=== PATIENT | female | born 1965 | race Two or more races ===

== ENCOUNTER 2017-02-21 11:32 | Emergency (ER) | payer MEDICAID, SELFPAY ==
[~2017-02-21] VITALS: Ht 154.9 cm; Wt 90.0 kg
[2017-02-21 11:35] VITALS: BP 130/90
[2017-02-21] MEDS ORDERED: KETOROLAC 30 MG/1 ML ONE (12:21)
[2017-02-21] MEDS ORDERED: KETOROLAC 30 MG/1 ML IM ONE (12:30)
== END 2017-02-21 13:34 | disposition home or self-care (01) ==
LOC: ED 12:23
DX: M25.561 Pain in right knee (principal); G89.29 Other chronic pain
CPT/HCPCS: 73564; 96372; 99284; J1885

== ENCOUNTER 2017-07-18 12:41 | Emergency (ER) | payer OTHER ==
[~2017-07-18] VITALS: Ht 154.9 cm; Wt 89.0 kg
[2017-07-18 13:17] VITALS: BP 146/91
[2017-07-18] MEDS ORDERED: KETOROLAC 30 MG/1 ML ONE (13:20)
[2017-07-18] MEDS ORDERED: KETOROLAC 30 MG/1 ML IM ONE (13:30)
[2017-07-18 13:32] LABS: HEMATOCRIT 42.7 % (34.6-47.8); HEMOGLOBIN 14.7 g/dL (11.7-16.4)
[2017-07-18 13:43] LABS: BLOOD UREA NITROGEN 19 mg/dL (7-18)
[2017-07-18 13:48] LABS: IS PT STATUS REG ER OR PRE ER? YES
== END 2017-07-18 14:55 | disposition home or self-care (01) ==
LOC: ED 13:22
DX: R07.89 Other chest pain (principal); Z88.0 Allergy status to penicillin; E78.5 Hyperlipidemia, unspecified; F17.200 Nicotine dependence, unspecified, uncomplicated
CPT/HCPCS: 36415; 71010; 80048; 82040; 83880; 84484; 85025; 85379; 93005; 96372; 99285; J1885

== ENCOUNTER 2017-10-06 14:56 | Emergency (ER) | payer MEDICAID, OTHER ==
[~2017-10-06] VITALS: Ht 154.9 cm; Wt 92.4 kg
[2017-10-06 15:53] VITALS: BP 122/87
== END 2017-10-06 16:42 | disposition home or self-care (01) ==
LOC: ED 15:30
DX: H66.001 Acute suppurative otitis media without spontaneous rupture of ear drum, right ear (principal); Z59.0 Homelessness
CPT/HCPCS: 99283

== ENCOUNTER 2018-06-03 17:42 | Emergency (ER) | payer OTHER ==
[~2018-06-03] VITALS: Ht 154.9 cm; Wt 97.1 kg
[2018-06-03 17:48] VITALS: BP 115/77
[2018-06-03] MEDS ORDERED: PROPARACAINE OPHTH 0.5%, 15ML ONE (17:59)
[2018-06-03] MEDS ORDERED: FLUORESCEIN OPHTHALMIC 1 MG STRIP EACHEYE ONE (18:00)
[2018-06-03] MEDS ORDERED: PROPARACAINE OPHTH 0.5%, 15ML EACHEYE ONE (18:00)
== END 2018-06-03 19:44 | disposition home or self-care (01) ==
LOC: ED 19:38
DX: H00.11 Chalazion right upper eyelid (principal); E78.5 Hyperlipidemia, unspecified
CPT/HCPCS: 99283

== ENCOUNTER 2018-08-22 16:45 | Emergency (ER) | payer OTHER ==
[~2018-08-22] VITALS: Ht 154.9 cm; Wt 95.0 kg
[2018-08-22] MEDS ORDERED: ASPIRIN 81 MG TABLET CHEW ONE (16:56)
[2018-08-22] MEDS ORDERED: ASPIRIN 81 MG TABLET CHEW PO ONE (17:00)
[2018-08-22 17:12] LABS: BASOPHILS # (AUTO) 0.03 x10^3/uL (0-0.1); BASOPHILS % (AUTO) 0 % (0-1); EOSINOPHILS # (AUTO) 0.43 x10^3/uL (0-0.4); EOSINOPHILS % (AUTO) 5 % (1-7); LYMPHOCYTES # (AUTO) 2.95 x10^3/uL (1-3.4); LYMPHOCYTES % (AUTO) 31 % (22-44); MD NO; MEAN CORPUSCULAR HEMOGLOBIN 30.7 pg (27.0-34.8); MEAN CORPUSCULAR HGB CONC 34.4 g/dL (32.4-35.8); MEAN CORPUSCULAR VOLUME 89.2 fL (80-100); MEAN PLATELET VOLUME 8.7 fL (7.4-10.4); MONOCYTES # (AUTO) 0.72 x10^3/uL (0.2-0.8); MONOCYTES % (AUTO) 7 % (2-9); NEUTROPHILS # (AUTO) 5.54 x10^3/uL (1.8-6.8); NEUTROPHILS % (AUTO) 57 % (42-75); PLATELET COUNT 263 x10^3/uL (130-400); RED BLOOD COUNT 4.75 x10^6/uL (3.82-5.3)
[2018-08-22 17:20] LABS: ALANINE AMINOTRANSFERASE 40 U/L (12-78); ALBUMIN 3.6 g/dL (3.4-5.0); ANION GAP 8 mmol/L (5-15); CALCIUM 8.6 mg/dL (8.5-10.1); CHLORIDE 108 mmol/L (98-107); CREATININE 0.97 mg/dL (0.55-1.02)
[2018-08-22 17:25] LABS: ALKALINE PHOSPHATASE 90 U/L (45-117); BILIRUBIN,TOTAL 0.2 mg/dL (0.2-1.0); TOTAL PROTEIN 7.9 g/dL (6.4-8.2); TROPONIN I < 0.015 ng/mL (0.000-0.045)
[2018-08-22 18:05] LABS: RAPID INFLUENZA A Negative (Negative); RAPID INFLUENZA B Negative (Negative)
[2018-08-22] MEDS ORDERED: OXYcodone/APAP 5/325MG TABLET ONE (18:10)
[2018-08-22] MEDS ORDERED: OXYcodone/APAP 5/325MG TABLET PO ONE (18:30)
[2018-08-22 19:00] VITALS: BP 128/78
== END 2018-08-22 19:02 | disposition home or self-care (01) ==
LOC: ED 18:49
DX: R07.89 Other chest pain (principal); B34.9 Viral infection, unspecified; R11.2 Nausea with vomiting, unspecified; R19.7 Diarrhea, unspecified; E78.5 Hyperlipidemia, unspecified; F17.200 Nicotine dependence, unspecified, uncomplicated
CPT/HCPCS: 36415; 71045; 80053; 84484; 85025; 87400; 93005; 99284

== ENCOUNTER 2018-10-30 08:19 | Emergency (ER) | payer OTHER ==
[~2018-10-30] VITALS: Ht 154.9 cm; Wt 95.9 kg
[2018-10-30 08:33] VITALS: BP 168/87
--- NOTE | 2018-10-30 08:42 | NUR ---
CONTACT WITH PT, 53 YR OLD FEMALE HERE WITH C/O "MY THROAT HURTS, I'M COUGHING UP BLOOD, MY EARS, I GOT THAT COUGH. MY FAMILY WAS DX SOME WITH BRONCHITITS, SOME WITH LARYANGITIS. I THINK I'M GETTING BETTER AND THEN GET SICKER" HAS BEEN SINCE SATURDAY. BLOOD IS "LITTLE STREAKS OF BLOOD.
--- NOTE | 2018-10-30 08:45 | NUR ---
DR FIGUEROA AT BEDSIDE TO MONICA PT.
--- NOTE | 2018-10-30 09:45 | NUR ---
NO ACUTE DISTRESS NOTED. NO IV TO DC. REVIEWED DC INSTRUCTIONS WITH PT, UNDERSTANDING VERBALIZED. PT LEFT AMB, GAIT STEADY.
== END 2018-10-30 10:05 | disposition home or self-care (01) ==
LOC: ED 09:25
DX: J04.0 Acute laryngitis (principal); J00 Acute nasopharyngitis [common cold]; E78.5 Hyperlipidemia, unspecified; E06.9 Thyroiditis, unspecified
CPT/HCPCS: 71046; 99283

== ENCOUNTER 2021-05-26 20:36 | Emergency (ER) | payer OTHER ==
[~2021-05-26] VITALS: Ht 63.5 cm; Wt 101.4 kg
[2021-05-26 21:12] LABS: BASOPHILS % (AUTO) 1 % (0-1); EOSINOPHILS % (AUTO) 5 % (1-7); LYMPHOCYTES % (AUTO) 21 % (22-44); MEAN CORPUSCULAR HEMOGLOBIN 30.8 pg (27.0-34.8); MEAN CORPUSCULAR HGB CONC 34.2 g/dL (32.4-35.8); MEAN PLATELET VOLUME 9.2 fL (7.4-10.4); MONOCYTES % (AUTO) 8 % (2-9); NEUTROPHILS % (AUTO) 65 % (42-75); PLATELET COUNT 268 x10^3/uL (130-400); RED BLOOD COUNT 4.82 x10^6/uL (3.82-5.3); RED CELL DISTRIBUTION WIDTH 14.9 % (9.6-15.2)
[2021-05-26 21:21] LABS: ANION GAP 7 mmol/L (5-15); CALCIUM 9.4 mg/dL (8.5-10.1); CHLORIDE 107 mmol/L (98-107)
[2021-05-26 21:22] LABS: ALBUMIN 3.9 g/dL (3.4-5.0)
[2021-05-26 22:09] VITALS: BP 125/79
--- NOTE | 2021-05-27 01:07 | NUR ---
Patient NIL after multiple attempts to call in.
== END 2021-05-27 01:09 | disposition left against medical advice (07) ==
LOC: ED 20:41
DX: R07.89 Other chest pain (principal); R06.00 Dyspnea, unspecified
CPT/HCPCS: 36415; 71045; 80048; 82040; 85025; 93005; 99285

== ENCOUNTER 2021-05-27 16:34 | Emergency (ER) | payer OTHER ==
[~2021-05-27] VITALS: Ht 154.9 cm; Wt 101.6 kg
--- NOTE | 2021-05-27 17:22 | NUR ---
URINE COLLECTED/ORDERED/SENT TO LAB. CALL LIGHT WITHIN REACH. PT AWARE OF RESP ISO.
[2021-05-27 17:33] LABS: MICROSCOPIC AUTO
--- NOTE | 2021-05-27 17:49 | NUR ---
UA RESULTS BACK, PT FOR RECHECK.
[2021-05-27 18:25] VITALS: BP 122/68
== END 2021-05-27 18:28 | disposition home or self-care (01) ==
LOC: ED 18:20
DX: R06.00 Dyspnea, unspecified (principal); M79.10 Myalgia, unspecified site; R51.9 Headache, unspecified; Z20.822 Contact with and (suspected) exposure to COVID-19; F17.200 Nicotine dependence, unspecified, uncomplicated
CPT/HCPCS: 81001; 87086; 99283